=== PATIENT | female | born 1990 | race African-American/Black ===

== ENCOUNTER → 2016-03-18 | Outpatient (CLI) | payer MEDICARE, MEDICAID ==
[~2016-03-18] VITALS: Ht 160 cm; Wt 131.8 kg
[~2016-03-18] MED LIST: AMOXICILLIN 50500 MG PO; BENADRYL50 MG PO; CALCIUM 600MG+D1 TAB PO; CEPHALEXIN500 M1 PO; CIPRO 500MG TA500 MG PO; DOXYCYCLINE HY100 MG PO; FERROUS SULFATE65 MG PO; FLEXERIL 1010 MG/TAB PO; HYGROTON 2525 MG/TAB PO; IMITREX 25MG TA25 MG PO; LEVAQUIN 5500 MG/TA1 PO; LORTAB 5/500 501 TAB; LORTAB 5/500 501 TAB PO; NORCO 325 MG-51 TAB PO; NORVASC 10MG10 MG PO; PERCOCET 325 MG1 TA2 PO; PHENERGAN 25 TA25 MG PO; PHENERGAN25 MG RC; PLAQUENIL 200M200 MG PO; PREDNISONE 5MG5 MG PO; PREDNISONE20 MG; PREDNISONE20 MG PO; PRENATAL1 TA6; PRENATAL1 TA7 PO; RELAFEN 50500 MG/TAB PO; RYZOLT100 MG; TYLENOL 500MG500 MG PO; VITAMIN D 1001000 IU PO; VITAMIN D 400400 IU; VITAMIN D1000 IU PO; ZITHROMAX500 M2 PO
[2016-03-18 09:56] VITALS: BP 108/64; PULSE 80
[2016-03-18 11:51] VITALS: BP 108/64; PULSE 80
== END ==
LOC: LIGHT 10:00
DX: M54.5 Low back pain (principal); I10 Essential (primary) hypertension; E66.01 Morbid (severe) obesity due to excess calories; Z68.43 Body mass index [BMI] 50.0-59.9, adult; G47.33 Obstructive sleep apnea (adult) (pediatric)

== ENCOUNTER → 2016-03-26 | Outpatient (CLI) | payer MEDICARE, MEDICAID | LOC: LIGHT 09:40 | DX: M54.5 Low back pain (principal); I10 Essential (primary) hypertension; E66.01 Morbid (severe) obesity due to excess calories; Z68.43 Body mass index [BMI] 50.0-59.9, adult; G47.33 Obstructive sleep apnea (adult) (pediatric) ==

== ENCOUNTER → 2016-03-30 | Outpatient (CLI) | payer MEDICARE, MEDICAID ==
[~2016-03-30] VITALS: Ht 160 cm; Wt 132.4 kg
== END ==
LOC: LIGHT 14:09
DX: M54.5 Low back pain (principal); I10 Essential (primary) hypertension; E66.01 Morbid (severe) obesity due to excess calories; Z68.43 Body mass index [BMI] 50.0-59.9, adult; G47.33 Obstructive sleep apnea (adult) (pediatric)

== ENCOUNTER → 2016-04-21 | Outpatient (CLI) | payer MEDICARE, MEDICAID ==
[~2016-04-21] VITALS: Ht 160 cm; Wt 132.2 kg
[2016-04-21 14:23] VITALS: BP 137/50; PULSE 92
== END ==
LOC: LIGHT 13:38
DX: M54.5 Low back pain (principal); I10 Essential (primary) hypertension; E66.01 Morbid (severe) obesity due to excess calories; Z68.43 Body mass index [BMI] 50.0-59.9, adult

== ENCOUNTER → 2016-05-19 | Outpatient (CLI) | payer MEDICARE, MEDICAID ==
[~2016-05-19] VITALS: Ht 160 cm; Wt 133.6 kg
[2016-05-19 14:58] VITALS: BP 126/74; PULSE 80
== END ==
LOC: LIGHT 14:55
DX: M54.5 Low back pain (principal); I10 Essential (primary) hypertension; E66.01 Morbid (severe) obesity due to excess calories; Z68.43 Body mass index [BMI] 50.0-59.9, adult; G47.33 Obstructive sleep apnea (adult) (pediatric)

== ENCOUNTER → 2016-06-23 | Outpatient (CLI) | payer MEDICARE, MEDICAID ==
[~2016-06-23] VITALS: Ht 160 cm; Wt 133.4 kg
[2016-06-23 15:31] VITALS: BP 116/71; PULSE 105
== END ==
LOC: LIGHT 10:02
DX: M54.5 Low back pain (principal); I10 Essential (primary) hypertension; E66.01 Morbid (severe) obesity due to excess calories; Z68.43 Body mass index [BMI] 50.0-59.9, adult; G47.33 Obstructive sleep apnea (adult) (pediatric)

== ENCOUNTER 2016-07-26 11:29 | Emergency (ER) | payer MEDICARE, MEDICAID ==
[~2016-07-26] VITALS: Ht 162.6 cm; Wt 127.3 kg
[~2016-07-26 11:29] MED LIST changes: -DOXYCYCLINE HY100 MG PO; -PRENATAL1 TA7 PO
[2016-07-26 11:31] VITALS: BP 145/84; TEMP 98.2
[2016-07-26] MEDS ORDERED: DOXYCYCLINE HY100 MG PO (12:12)
[2016-07-26] MEDS ORDERED: NORCO 325 MG-51 TAB PO (13:00)
[2016-07-26 13:14] VITALS: PULSE 88
== END 2016-07-26 13:14 | disposition home or self-care (01) ==
LOC: COL.ER 11:29
DX: L02.412 Cutaneous abscess of left axilla (principal); M32.9 Systemic lupus erythematosus, unspecified

== ENCOUNTER → 2016-07-27 | Outpatient (CLI) | payer MEDICARE, MEDICAID ==
[~2016-07-27] VITALS: Ht 160 cm; Wt 134.5 kg
[~2016-07-27] MED LIST changes: +DOXYCYCLINE HY100 MG PO; +PRENATAL1 TA7 PO
== END ==
LOC: LIGHT 11:38
DX: M54.5 Low back pain (principal); I10 Essential (primary) hypertension; E66.01 Morbid (severe) obesity due to excess calories; Z68.43 Body mass index [BMI] 50.0-59.9, adult; Z71.3 Dietary counseling and surveillance; G47.33 Obstructive sleep apnea (adult) (pediatric)

== ENCOUNTER 2016-08-22 17:30 | Emergency (ER) | payer MEDICARE, MEDICAID ==
[~2016-08-22] VITALS: Ht 162.6 cm; Wt 131.8 kg
[~2016-08-22 17:30] MED LIST changes: -PRENATAL1 TA7 PO
[2016-08-22 17:32] VITALS: TEMP 98.9
[2016-08-22 18:06] LABS: BASO % 0.2 % (0.0-2.0); EOS % 0.2 % (0-4.0); GRAN # 2.2 (1.4-6.5); GRAN % 48.1 % (42.2-75.2); LYMPH # 1.9 (1.2-3.4); LYMPH % 40.8 % (20.0-51.0); MEAN CELL VOLUME 80 fl (80.0-100.0); MEAN CORPUSCULAR HGB CONC 33 g/dl (33.0-37.0); MEAN PLATELET VOLUME 8.7 fl (7.4-10.4); MONO # 0.5 (0.1-0.6); MONO % 10.3 % (1.7-9.3); PLATELET COUNT 289 K/mm3 (130-400); RED BLOOD COUNT 3.68 M/mm3 (4.10-5.30); REDCELL DISTRIBUTION WIDTH-CV 13.9 % (11.5-14.5); WHITE BLOOD COUNT 4.7 K/mm3 (4.8-10.8)
[2016-08-22 18:09] LABS: PH 6 (5-8); URINE APPEARANCE Clear; URINE BACTERIA None Seen /hpf; URINE BILIRUBIN Negative (NEGATIVE); URINE BLOOD Negative (NEGATIVE); URINE COLOR Yellow; URINE GLUCOSE Negative (NEGATIVE); URINE KETONE Negative (NEGATIVE); URINE UROBILINOGEN Negative (NEGATIVE); URINE WBC 0-2 /hpf
[2016-08-22] MEDS ORDERED: PRENATAL1 TA7 PO (18:12)
[2016-08-22 18:14] LABS: ALBUMIN 4.2 gm/dL (3.5-5.0); BILIRUBIN,TOTAL 0.4 mg/dL (0.0-1.0); CALCIUM 9.2 mg/dL (8.4-10.2); CREATININE, serum 0.66 mg/dL (0.52-1.25); POTASSIUM 3.6 mmol/L (3.4-5.0); TOTAL PROTEIN 8.5 gm/dL (6.4-8.2)
[2016-08-22 18:15] LABS: HEMATOCRIT 29.3 % (37.0-47.0); HEMOGLOBIN 9.8 g/dl (12.5-16.0); MEAN CORPUSCULAR HEMOGLOBIN 27 pg (27.0-31.0)
[2016-08-22 19:23] VITALS: BP 144/98; PULSE 77
== END 2016-08-22 19:23 | disposition home or self-care (01) ==
LOC: COL.ER 17:30
PROVIDERS: Emergency Medicine
DX: O99.89 Other specified diseases and conditions complicating pregnancy, childbirth and the puerperium (principal); R51 Headache; O10.911 Unspecified pre-existing hypertension complicating pregnancy, first trimester; O99.351 Diseases of the nervous system complicating pregnancy, first trimester; G43.909 Migraine, unspecified, not intractable, without status migrainosus; Z3A.08 8 weeks gestation of pregnancy

== ENCOUNTER 2016-09-09 15:54 | Emergency (ER) | payer MEDICARE, MEDICAID ==
[~2016-09-09] VITALS: Ht 162.6 cm; Wt 95.0 kg
[~2016-09-09 15:54] MED LIST changes: +PRENATAL1 TA7 PO
[2016-09-09 15:57] VITALS: TEMP 97.9
[2016-09-09 16:38] LABS: PH 6 (5-8); URINE APPEARANCE Hazy; URINE BACTERIA None Seen /hpf; URINE BILIRUBIN Negative (NEGATIVE); URINE BLOOD Negative (NEGATIVE); URINE COLOR Yellow; URINE GLUCOSE Negative (NEGATIVE); URINE KETONE Negative (NEGATIVE); URINE RBC 0-2 /hpf; URINE UROBILINOGEN Negative (NEGATIVE); URINE WBC 0-2 /hpf
[2016-09-09 18:08] LABS: EOS % 0.1 % (0-4.0); GRAN # 4.5 (1.4-6.5); GRAN % 63.9 % (42.2-75.2); LYMPH # 1.7 (1.2-3.4); LYMPH % 23.5 % (20.0-51.0); MEAN CELL VOLUME 77 fl (80.0-100.0); MEAN CORPUSCULAR HGB CONC 34 g/dl (33.0-37.0); MEAN PLATELET VOLUME 8.7 fl (7.4-10.4); MONO # 0.8 (0.1-0.6); MONO % 11.8 % (1.7-9.3); PLATELET COUNT 335 K/mm3 (130-400); RED BLOOD COUNT 3.57 M/mm3 (4.10-5.30); REDCELL DISTRIBUTION WIDTH-CV 13.7 % (11.5-14.5)
[2016-09-09 18:19] LABS: HEMATOCRIT 27.5 % (37.0-47.0); HEMOGLOBIN 9.4 g/dl (12.5-16.0); MEAN CORPUSCULAR HEMOGLOBIN 26 pg (27.0-31.0)
[2016-09-09 18:20] LABS: ADJUSTED CALCIUM 9.5 mg/dL (8.4-10.2); ALBUMIN 4.2 gm/dL (3.5-5.0); BILIRUBIN,TOTAL 0.5 mg/dL (0.0-1.0); CALCIUM 9.7 mg/dL (8.4-10.2); CREATININE, serum 0.59 mg/dL (0.52-1.25); POTASSIUM 3.4 mmol/L (3.4-5.0); TOTAL PROTEIN 8.7 gm/dL (6.4-8.2)
[2016-09-09 19:09] VITALS: BP 127/84
[2016-09-09 20:20] VITALS: PULSE 99
== END 2016-09-09 20:20 | disposition home or self-care (01) ==
LOC: COL.ER 15:54
PROVIDERS: Nurse Practitioner; Physician Assistant Medical
DX: O26.891 Other specified pregnancy related conditions, first trimester (principal); R07.81 Pleurodynia; Z3A.10 10 weeks gestation of pregnancy
CPT/HCPCS: J1170

== ENCOUNTER → 2016-12-11 | Outpatient (CLI) | payer MEDICAID | LOC: COL.VAS 12:21 | DX: I08.1 Rheumatic disorders of both mitral and tricuspid valves (principal); Z86.711 Personal history of pulmonary embolism ==

== ENCOUNTER 2017-02-19 17:25 | Emergency (ER) | payer MEDICAID ==
[~2017-02-19] VITALS: Ht 162.6 cm; Wt 129.5 kg
[~2017-02-19 17:25] MED LIST changes: +LOVENOX 8080 MG/0.8 SQ; +TRANDATE 100MG100 MG PO
[2017-02-19 17:35] VITALS: TEMP 97.7
[2017-02-19] MEDS ORDERED: ZOLOFT 50MG50 MG PO (17:58)
[2017-02-19] MEDS ORDERED: DIABETA 5MG5 MG/TAB PO (18:01)
[2017-02-19 18:41] LABS: COLLECTION METHOD CATHETER
[2017-02-19 18:44] LABS: BASO % 0.1 % (0.0-2.0); EOS % 0.1 % (0-4.0); GRAN # 4.5 (1.4-6.5); GRAN % 61.2 % (42.2-75.2); LYMPH # 1.7 (1.2-3.4); LYMPH % 23.4 % (20.0-51.0); MEAN CELL VOLUME 76 fl (80.0-100.0); MEAN CORPUSCULAR HGB CONC 32 g/dl (33.0-37.0); MEAN PLATELET VOLUME 8.8 fl (7.4-10.4); MONO # 0.9 (0.1-0.6); MONO % 11.9 % (1.7-9.3); PLATELET COUNT 358 K/mm3 (130-400); RED BLOOD COUNT 3.92 M/mm3 (4.10-5.30)
[2017-02-19 18:51] LABS: HEMATOCRIT 29.6 % (37.0-47.0); HEMOGLOBIN 9.6 g/dl (12.5-16.0); MEAN CORPUSCULAR HEMOGLOBIN 24 pg (27.0-31.0)
[2017-02-19 18:54] LABS: ALBUMIN 3.8 gm/dL (3.5-5.0); BILIRUBIN,TOTAL 0.4 mg/dL (0.0-1.0); CALCIUM 9.2 mg/dL (8.4-10.2); CREATININE, serum 0.67 mg/dL (0.52-1.25); PH 6 (5-8); POTASSIUM 3.8 mmol/L (3.4-5.0); SQUAMOUS EPITHELIAL 0-2 /hpf; URINE APPEARANCE Clear; URINE BACTERIA Rare /hpf; URINE BILIRUBIN Negative (NEGATIVE); URINE BLOOD Negative (NEGATIVE); URINE COLOR Yellow; URINE GLUCOSE Negative (NEGATIVE); URINE KETONE Negative (NEGATIVE); URINE LEUKOCYTE ESTERASE Negative (NEGATIVE); URINE NITRATE Negative (NEGATIVE); URINE PROTEIN(semi-quant) Negative (NEGATIVE); URINE RBC None Seen /hpf; URINE UROBILINOGEN >=4.0 mg/dL (NEGATIVE); URINE WBC 0-2 /hpf
[2017-02-19 18:59] LABS: PARTIAL THROMBOPLASTIN TIME 28.3 SECONDS (26.0-37.0)
[2017-02-19] MEDS ORDERED: FIORICET 325 MG1 TA1 PO (20:42)
[2017-02-19 20:46] VITALS: BP 134/84; PULSE 90
== END 2017-02-19 20:55 | disposition home or self-care (01) ==
LOC: COL.ER 17:25
PROVIDERS: Emergency Medicine
DX: O26.893 Other specified pregnancy related conditions, third trimester (principal); R51 Headache; O24.113 Pre-existing type 2 diabetes mellitus, in pregnancy, third trimester; E11.9 Type 2 diabetes mellitus without complications; O10.913 Unspecified pre-existing hypertension complicating pregnancy, third trimester; Z3A.31 31 weeks gestation of pregnancy; Z86.711 Personal history of pulmonary embolism; Z79.84 Long term (current) use of oral hypoglycemic drugs
CPT/HCPCS: J1200; J2550; J7030

== ENCOUNTER 2017-04-26 13:04 | Emergency (ER) | payer MEDICAID ==
[~2017-04-26] VITALS: Ht 162.6 cm; Wt 131.8 kg
[~2017-04-26 13:04] MED LIST changes: +DIABETA 5MG5 MG/TAB PO; +FIORICET 325 MG1 TA1 PO; +ZOLOFT 50MG50 MG PO
[2017-04-26 13:06] VITALS: TEMP 98.9
[2017-04-26] MEDS ORDERED: NORCO 325 MG-51 TAB PO (13:50)
[2017-04-26] MEDS ORDERED: DOXYCYCLINE 10100 MG PO (13:50)
[2017-04-26 14:04] VITALS: BP 155/95; PULSE 81
== END 2017-04-26 14:07 | disposition home or self-care (01) ==
LOC: COL.ER 13:04
DX: O99.73 Diseases of the skin and subcutaneous tissue complicating the puerperium (principal); L02.411 Cutaneous abscess of right axilla; Z87.39 Personal history of other diseases of the musculoskeletal system and connective tissue; Z88.0 Allergy status to penicillin; Z98.890 Other specified postprocedural states; Z79.01 Long term (current) use of anticoagulants; Z79.84 Long term (current) use of oral hypoglycemic drugs

== ENCOUNTER → 2017-05-03 | Outpatient (CLI) | payer MEDICARE, MEDICAID ==
[~2017-05-03] VITALS: Ht 162.6 cm; Wt 135.4 kg
[~2017-05-03] MED LIST changes: +DOXYCYCLINE 10100 MG PO; +IRON TABLETS325 MG PO; +VITAMIN D31000 I1 PO
[2017-05-03 16:54] VITALS: BP 136/90; PULSE 60
== END ==
LOC: LIGHT
DX: M54.5 Low back pain (principal); I10 Essential (primary) hypertension; E66.01 Morbid (severe) obesity due to excess calories; Z68.43 Body mass index [BMI] 50.0-59.9, adult; Z71.3 Dietary counseling and surveillance; G47.33 Obstructive sleep apnea (adult) (pediatric)
CPT/HCPCS: G0463

== ENCOUNTER 2017-05-12 09:20 | Inpatient (IN) | payer MEDICARE, MEDICAID ==
[~2017-05-12] VITALS: Ht 162.6 cm; Wt 134.1 kg
[2017-05-17] MEDS ORDERED: DIABETA 2.5MG2.5 MG PO (17:07)
[2017-05-17] MEDS ORDERED: NORMODYNE200 MG PO (17:08)
[2017-05-17] MEDS ORDERED: NORCO 325 MG-51 TAB PO (17:11)
[2017-05-17] MEDS ORDERED: CLEOCIN HCL300 MG PO (17:11)
[2017-06-11] MEDS ORDERED: NATURAL IRON65 MG (14:25)
[2017-06-11] MEDS ORDERED: MASON NATURAL2000 IU (14:25)
[2017-06-11] MEDS ORDERED: CLEOCIN HC150 MG/CAP PO (15:34)
[2017-06-30] VITALS (11 sets, daily range): BP systolic 150–159; BP diastolic 90–105; PULSE 77–102; TEMP 97.5–97.8
[2017-07-01 00:05] VITALS: BP 154/83; PULSE 96; TEMP 98
[2017-07-01 04:31] VITALS: BP 147/79; PULSE 79; TEMP 98.6
[2017-07-01 08:55] VITALS: BP 170/109; PULSE 75; TEMP 98.6
[2017-07-01 13:04] VITALS: BP 165/97; PULSE 66; TEMP 98.6
[2017-07-01 15:05] VITALS: BP 155/91; PULSE 73; TEMP 98.3
== END 2017-07-01 19:15 | disposition home or self-care (01) | DRG 621 ==
LOC: INPTSU 06-30 05:30 → SURG 06-30 05:45 → INPTSU 06-30 05:45 → SURG 06-30 07:30
PROVIDERS: Surgery
PROC: 0DB64Z3 Excision of Stomach, Percutaneous Endoscopic Approach, Vertical (ICD-10-PCS; principal; 2017-06-30 07:30)
DX: E66.01 Morbid (severe) obesity due to excess calories (principal); Z68.43 Body mass index [BMI] 50.0-59.9, adult
CPT/HCPCS: J0360; J1100; J1170; J1885; J2405; J2550; J2704; J2710; J2765; J3010; J7030; J7120

== ENCOUNTER 2017-05-17 16:49 | Emergency (ER) | payer MEDICARE, MEDICAID ==
[~2017-05-17] VITALS: Ht 162.6 cm; Wt 131.8 kg
[2017-05-17 16:51] VITALS: PULSE 87; TEMP 98.8
[2017-05-17] MEDS ORDERED: DIABETA 2.5MG2.5 MG PO (17:07)
[2017-05-17] MEDS ORDERED: NORMODYNE200 MG PO (17:08)
[2017-05-17] MEDS ORDERED: CLEOCIN HCL300 MG PO (17:11)
[2017-05-17] MEDS ORDERED: NORCO 325 MG-51 TAB PO (17:11)
[2017-05-17 17:16] VITALS: BP 176/106
== END 2017-05-17 17:18 | disposition home or self-care (01) ==
LOC: COL.ER 16:49
DX: K08.89 Other specified disorders of teeth and supporting structures (principal); I10 Essential (primary) hypertension; Z88.0 Allergy status to penicillin

== ENCOUNTER 2017-06-11 12:50 | Emergency (ER) | payer MEDICARE, MEDICAID ==
[~2017-06-11] VITALS: Ht 162.6 cm; Wt 131.8 kg
[~2017-06-11 12:50] MED LIST changes: +CLEOCIN HCL300 MG PO; +DIABETA 2.5MG2.5 MG PO; +NORMODYNE200 MG PO
[2017-06-11 12:58] VITALS: BP 184/120; PULSE 84; TEMP 98.6
[2017-06-11] MEDS ORDERED: NATURAL IRON65 MG (14:25)
[2017-06-11] MEDS ORDERED: MASON NATURAL2000 IU (14:25)
[2017-06-11] MEDS ORDERED: CLEOCIN HC150 MG/CAP PO (15:34)
== END 2017-06-11 15:49 | disposition home or self-care (01) ==
LOC: COL.ER 12:50
DX: L02.411 Cutaneous abscess of right axilla (principal); I10 Essential (primary) hypertension; Z88.0 Allergy status to penicillin

== ENCOUNTER → 2017-06-14 | Outpatient (CLI) | payer MEDICARE, MEDICAID ==
[~2017-06-14] MED LIST changes: +CLEOCIN HC150 MG/CAP PO; +MASON NATURAL2000 IU; +NATURAL IRON65 MG
== END ==
LOC: LIGHT 11:02
DX: E66.01 Morbid (severe) obesity due to excess calories (principal)

== ENCOUNTER 2017-07-12 19:22 | Emergency (ER) | payer MEDICARE, MEDICAID ==
[~2017-07-12] VITALS: Ht 162.6 cm; Wt 129.0 kg
[2017-07-12] MEDS ORDERED: NORCO 325 MG-51 TAB PO (19:46)
[2017-07-12] MEDS ORDERED: DOXYCYCLINE 10100 MG PO (19:46)
[2017-07-12 20:08] VITALS: BP 166/100; PULSE 73; TEMP 97.9
== END 2017-07-12 20:05 | disposition home or self-care (01) ==
LOC: COL.ER 19:22
DX: T81.30XA Disruption of wound, unspecified, initial encounter (principal); T81.4XXA Infection following a procedure, initial encounter; Z88.0 Allergy status to penicillin

== ENCOUNTER 2017-08-03 13:25 | Emergency (ER) | payer MEDICARE, MEDICAID ==
[~2017-08-03] VITALS: Ht 162.6 cm; Wt 115.5 kg
[2017-08-03 13:30] VITALS: TEMP 98.1
[2017-08-03] MEDS ORDERED: PLAQUENIL 200M200 MG PO (14:58)
[2017-08-03] MEDS ORDERED: DOXYCYCLINE 10100 MG PO (15:16)
[2017-08-03] MEDS ORDERED: CEPHALEXIN500 M1 PO (15:16)
[2017-08-03 15:46] VITALS: BP 136/90; PULSE 78
== END 2017-08-03 15:47 | disposition home or self-care (01) ==
LOC: COL.ER 13:25
DX: L03.113 Cellulitis of right upper limb (principal); Z98.51 Tubal ligation status

== ENCOUNTER → 2017-08-09 | Outpatient (CLI) | payer MEDICARE, MEDICAID ==
[~2017-08-09] VITALS: Ht 162.6 cm; Wt 119.1 kg
[~2017-08-09] MED LIST changes: -NATURAL IRON65 MG; +NATURAL IRON65 MG PO
[2017-08-09 13:38] VITALS: BP 110/52; PULSE 68
== END ==
LOC: LIGHT 13:07
DX: M54.5 Low back pain (principal); I10 Essential (primary) hypertension; E66.01 Morbid (severe) obesity due to excess calories; Z68.42 Body mass index [BMI] 45.0-49.9, adult; Z71.3 Dietary counseling and surveillance; G47.33 Obstructive sleep apnea (adult) (pediatric)

== ENCOUNTER 2017-08-24 15:39 | Emergency (ER) | payer MEDICARE, MEDICAID ==
[~2017-08-24] VITALS: Ht 162.6 cm; Wt 115.5 kg
[2017-08-24 15:49] VITALS: TEMP 98
[2017-08-24 18:10] VITALS: BP 199/101; PULSE 68
== END 2017-08-24 18:11 | disposition home or self-care (01) ==
LOC: COL.ER 15:39
DX: M79.661 Pain in right lower leg (principal); Y92.009 Unspecified place in unspecified non-institutional (private) residence as the place of occurrence of the external cause

== ENCOUNTER → 2017-09-06 | Outpatient (CLI) | payer MEDICARE, MEDICAID ==
[~2017-09-06] VITALS: Ht 162.6 cm; Wt 114.5 kg
[2017-09-06 16:46] VITALS: BP 126/80; PULSE 80
== END ==
LOC: LIGHT 09:42
DX: I10 Essential (primary) hypertension (principal); G47.33 Obstructive sleep apnea (adult) (pediatric); E66.01 Morbid (severe) obesity due to excess calories; Z68.41 Body mass index [BMI] 40.0-44.9, adult; Z71.3 Dietary counseling and surveillance; Z98.84 Bariatric surgery status

== ENCOUNTER → 2017-12-27 | Outpatient (CLI) | payer MEDICARE, MEDICAID ==
[~2017-12-27] VITALS: Ht 162.6 cm; Wt 101.2 kg
[~2017-12-27] MED LIST changes: +B-121000 MCG PO; +MULTIVITAMIN FO1 CAP PO; +VITAMIN D32000 IU PO
[2017-12-27 13:10] VITALS: BP 140/100; PULSE 72
== END ==
LOC: LIGHT 12:53
DX: I10 Essential (primary) hypertension (principal); G47.33 Obstructive sleep apnea (adult) (pediatric); Z98.84 Bariatric surgery status; E66.9 Obesity, unspecified; Z68.38 Body mass index [BMI] 38.0-38.9, adult; Z71.3 Dietary counseling and surveillance
CPT/HCPCS: G0463

== ENCOUNTER 2018-01-27 14:39 | Emergency (ER) | payer MEDICARE, MEDICAID ==
[~2018-01-27] VITALS: Ht 162.6 cm; Wt 100.0 kg
[2018-01-27 14:55] VITALS: BP 193/103; PULSE 69; TEMP 99
[2018-01-27] MEDS ORDERED: CLEOCIN HCL300 MG PO (16:34)
[2018-01-27] MEDS ORDERED: NORCO 325 MG-51 TAB PO (16:35)
== END 2018-01-27 17:00 | disposition home or self-care (01) ==
LOC: COL.ER 14:39
DX: K08.89 Other specified disorders of teeth and supporting structures (principal); L03.211 Cellulitis of face

== ENCOUNTER 2018-02-14 12:39 | Emergency (ER) | payer MEDICARE, MEDICAID ==
[~2018-02-14] VITALS: Ht 162.6 cm; Wt 92.7 kg
[2018-02-14 13:02] VITALS: BP 161/96; PULSE 73; TEMP 98.2
[2018-02-14] MEDS ORDERED: NORCO 325 MG-51 TAB PO (15:08)
[2018-02-14] MEDS ORDERED: CEPHALEXIN500 M1 PO (15:08)
== END 2018-02-14 15:52 | disposition home or self-care (01) ==
LOC: COL.ER 12:39
DX: T23.261A Burn of second degree of back of right hand, initial encounter (principal); M32.9 Systemic lupus erythematosus, unspecified; X15.0XXA Contact with hot stove (kitchen), initial encounter; Y92.009 Unspecified place in unspecified non-institutional (private) residence as the place of occurrence of the external cause

== ENCOUNTER 2018-03-20 14:33 | Emergency (ER) | payer MEDICAID ==
[~2018-03-20] VITALS: Ht 162.6 cm; Wt 92.7 kg
[2018-03-20 14:48] VITALS: BP 189/116; PULSE 82; TEMP 98.7
[2018-03-20] MEDS ORDERED: NORCO 325 MG-51 TAB PO (15:15)
[2018-03-20] MEDS ORDERED: DOXYCYCLINE HY100 MG PO (15:15)
== END 2018-03-20 15:30 | disposition home or self-care (01) ==
LOC: COL.ER 14:33
DX: L73.2 Hidradenitis suppurativa (principal); Z88.0 Allergy status to penicillin; Z86.711 Personal history of pulmonary embolism

== ENCOUNTER 2018-05-23 12:21 | Emergency (ER) | payer MEDICARE ==
[~2018-05-23] VITALS: Ht 162.6 cm; Wt 88.6 kg
[2018-05-23 12:29] VITALS: BP 175/101; TEMP 100.2
[2018-05-23] MEDS ORDERED: VOLTAREN GEL 1%1 TU TP (13:54)
[2018-05-23] MEDS ORDERED: ULTRAM 50MG TAB50 MG PO (14:21)
[2018-05-23 14:25] VITALS: PULSE 94
== END 2018-05-23 14:27 | disposition home or self-care (01) ==
LOC: COL.ER 12:21
DX: M25.561 Pain in right knee (principal); J44.9 Chronic obstructive pulmonary disease, unspecified

== ENCOUNTER → 2018-09-05 | Outpatient (CLI) | payer MEDICARE ==
[~2018-09-05] VITALS: Ht 162.6 cm; Wt 95.0 kg
[~2018-09-05] MED LIST changes: +ULTRAM 50MG TAB50 MG PO; +VOLTAREN GEL 1%1 TU TP
[2018-09-05 15:29] VITALS: BP 170/110; PULSE 72
== END ==
LOC: LIGHT 08-08 13:41
DX: Z98.84 Bariatric surgery status (principal); I10 Essential (primary) hypertension; G47.33 Obstructive sleep apnea (adult) (pediatric); E66.01 Morbid (severe) obesity due to excess calories; Z68.36 Body mass index [BMI] 36.0-36.9, adult; Z71.3 Dietary counseling and surveillance
CPT/HCPCS: G0463

== ENCOUNTER 2018-09-11 10:07 | Emergency (ER) | payer MEDICARE, MEDICAID ==
[~2018-09-11] VITALS: Ht 162.6 cm; Wt 88.6 kg
[2018-09-11 10:08] VITALS: TEMP 98.5
[2018-09-11 10:41] LABS: COLLECTION METHOD CLEAN CATCH
[2018-09-11 10:52] LABS: BASO % 0.3 % (0.0-2.0); EOS % 0.3 % (0-4.0); GRAN # 1.5 (1.4-6.5); HEMOGLOBIN 11.2 g/dl (12.5-16.0); LYMPH # 1.2 (1.2-3.4); LYMPH % 35.9 % (20.0-51.0); MEAN CELL VOLUME 85 fl (80.0-100.0); MEAN CORPUSCULAR HEMOGLOBIN 28 pg (27.0-31.0); MEAN CORPUSCULAR HGB CONC 33 g/dl (33.0-37.0); MEAN PLATELET VOLUME 8.5 fl (7.4-10.4); MONO # 0.6 (0.1-0.6); MONO % 18.2 % (1.7-9.3); PLATELET COUNT 360 K/mm3 (130-400); RED BLOOD COUNT 3.98 M/mm3 (4.10-5.30); REDCELL DISTRIBUTION WIDTH-CV 13.7 % (11.5-14.5)
[2018-09-11 10:53] LABS: HEMATOCRIT 33.7 % (37.0-47.0)
[2018-09-11 11:04] LABS: PH 7 (5-8); SQUAMOUS EPITHELIAL 0-2 /hpf; URINE APPEARANCE Clear; URINE BACTERIA None Seen /hpf; URINE BILIRUBIN Negative (NEGATIVE); URINE BLOOD Negative (NEGATIVE); URINE COLOR Yellow; URINE GLUCOSE Negative (NEGATIVE); URINE KETONE Negative (NEGATIVE); URINE LEUKOCYTE ESTERASE Negative (NEGATIVE); URINE NITRATE Negative (NEGATIVE); URINE PROTEIN(semi-quant) Negative (NEGATIVE); URINE RBC 0-2 /hpf; URINE UROBILINOGEN Negative (NEGATIVE)
[2018-09-11 11:09] LABS: ALANINE AMINOTRANSFERASE < 6 U/L (9-52); ALBUMIN 4.4 gm/dL (3.5-5.0); ALKALINE PHOSPHATASE 107 U/L (50-136); ANION GAP 10 mmol/L (7-16); AST,SGOT 28 U/L (15-37); BILIRUBIN,TOTAL 0.5 mg/dL (0.0-1.0); BLOOD UREA NITROGEN 6 mg/dL (7-17); C-REACTIVE PROTEIN 1.9 mg/dL (0.0-0.9); CALCIUM 9.3 mg/dL (8.4-10.2); CARBON DIOXIDE 27 mmol/L (22-30); CHLORIDE 105 mmol/L (98-107); CREATININE, serum 0.58 (0.52-1.25); GLUCOSE 85 mg/dL (74-106); SODIUM 143 mmol/L (137-145); TOTAL PROTEIN 8.9 gm/dL (6.4-8.2)
[2018-09-11 11:11] LABS: POTASSIUM 2.9 mmol/L (3.4-5.0)
[2018-09-11 11:20] LABS: ERYTHROCYTE SEDIMENTATION RATE 24 mm/hr (0-20)
[2018-09-11] MEDS ORDERED: PLAQUENIL 200M200 MG PO (11:59)
[2018-09-11] MEDS ORDERED: CLEOCIN HC150 MG/CAP PO (13:46)
[2018-09-11] MEDS ORDERED: PERCOCET 325 MG1 TA2 PO (13:46)
[2018-09-11] MEDS ORDERED: TRANDATE 100MG100 MG PO (15:06)
[2018-09-11 15:16] VITALS: BP 132/88; PULSE 76
== END 2018-09-11 15:16 | disposition home or self-care (01) ==
LOC: COL.ER 10:07
PROVIDERS: Emergency Medicine
DX: L03.114 Cellulitis of left upper limb (principal); I10 Essential (primary) hypertension; Z98.84 Bariatric surgery status; Z98.51 Tubal ligation status; Z98.890 Other specified postprocedural states
CPT/HCPCS: J1170; J3480; J7030; Q9967

== ENCOUNTER 2019-02-15 12:03 | Emergency (ER) | payer MEDICARE, MEDICAID | END 2019-02-15 12:44 | disposition left against medical advice (07) | LOC: COL.ER 12:03 | DX: Z72.9 Problem related to lifestyle, unspecified (principal) ==

== ENCOUNTER 2019-02-23 19:31 | Emergency (ER) | payer MEDICARE, MEDICAID ==
[~2019-02-23] VITALS: Ht 162.6 cm; Wt 90.9 kg
[2019-02-23 19:37] VITALS: BP 180/111; TEMP 97.8
[2019-02-23 21:05] VITALS: PULSE 82
== END 2019-02-23 21:00 | disposition home or self-care (01) ==
LOC: COL.ER 19:31
DX: S80.01XA Contusion of right knee, initial encounter (principal); W10.9XXA Fall (on) (from) unspecified stairs and steps, initial encounter

== ENCOUNTER 2019-03-06 09:57 | Emergency (ER) | payer MEDICARE, MEDICAID ==
[~2019-03-06] VITALS: Ht 162.6 cm; Wt 90.9 kg
[2019-03-06 10:07] VITALS: TEMP 98.7
[2019-03-06] MEDS ORDERED: CEPHALEXIN500 M1 PO (11:52)
[2019-03-06 12:06] VITALS: BP 161/92; PULSE 85
== END 2019-03-06 12:08 | disposition home or self-care (01) ==
LOC: COL.ER 09:57
DX: J02.9 Acute pharyngitis, unspecified (principal); Z88.0 Allergy status to penicillin; Z88.6 Allergy status to analgesic agent; Z98.84 Bariatric surgery status

== ENCOUNTER 2019-04-07 10:24 | Emergency (ER) | payer MEDICARE, MEDICAID ==
[~2019-04-07] VITALS: Ht 162.6 cm; Wt 90.9 kg
[2019-04-07] MEDS ORDERED: ERGOCALCIFER50000 IU PO (10:49)
[2019-04-07] MEDS ORDERED: VENTOLIN0.09 MG IH (10:50)
[2019-04-07] MEDS ORDERED: ORAL PAIN REL9.35 GM MM (10:50)
[2019-04-07] MEDS ORDERED: K-TAB20 PO (10:51)
[2019-04-07] MEDS ORDERED: TYLENOL 325MG325 MG PO (10:52)
[2019-04-07 11:12] LABS: BASO % 0.2 % (0.0-2.0); EOS % 0.2 % (0-4.0); GRAN # 3.8 (1.4-6.5); GRAN % 60.6 % (42.2-75.2); HEMATOCRIT 32.1 % (37.0-47.0); HEMOGLOBIN 10.8 g/dl (12.5-16.0); LYMPH # 1.7 (1.2-3.4); LYMPH % 26.3 % (20.0-51.0); MEAN CELL VOLUME 86 fl (80.0-100.0); MEAN CORPUSCULAR HEMOGLOBIN 29 pg (27.0-31.0); MEAN CORPUSCULAR HGB CONC 34 g/dl (33.0-37.0); MEAN PLATELET VOLUME 8.5 fl (7.4-10.4); MONO # 0.8 (0.1-0.6); MONO % 12.4 % (1.7-9.3); PLATELET COUNT 366 K/mm3 (130-400); RED BLOOD COUNT 3.72 M/mm3 (4.10-5.30); REDCELL DISTRIBUTION WIDTH-CV 13.8 % (11.5-14.5)
[2019-04-07 11:23] LABS: ALBUMIN 4.5 gm/dL (3.5-5.0); BILIRUBIN,TOTAL 0.4 mg/dL (0.0-1.0); CALCIUM 9.1 mg/dL (8.4-10.2); CREATININE, serum 0.75 (0.52-1.25); POTASSIUM 3.1 mmol/L (3.4-5.0)
[2019-04-07] MEDS ORDERED: ULTRAM 50MG TAB50 MG PO (12:23)
[2019-04-07 12:30] VITALS: BP 174/120; PULSE 75; TEMP 98.6
== END 2019-04-07 12:40 | disposition home or self-care (01) ==
LOC: COL.ER 10:24
PROVIDERS: Physician Assistant
DX: D64.9 Anemia, unspecified (principal); K06.8 Other specified disorders of gingiva and edentulous alveolar ridge; E87.6 Hypokalemia; I10 Essential (primary) hypertension

== ENCOUNTER 2019-07-28 19:33 | Emergency (ER) | payer MEDICARE, MEDICAID ==
[~2019-07-28] VITALS: Ht 162.6 cm; Wt 90.9 kg
[~2019-07-28 19:33] MED LIST changes: +ERGOCALCIFER50000 IU PO; +K-TAB20 PO; +ORAL PAIN REL9.35 GM MM; +TYLENOL 325MG325 MG PO; +VENTOLIN0.09 MG IH
[2019-07-28] MEDS ORDERED: CLEOCIN HC150 MG/CAP PO (20:04)
[2019-07-28 20:20] VITALS: BP 137/74; PULSE 67; TEMP 98.1
== END 2019-07-28 20:28 | disposition home or self-care (01) ==
LOC: COL.ER 19:33
DX: R51 Headache (principal); R22.0 Localized swelling, mass and lump, head; I10 Essential (primary) hypertension; M32.9 Systemic lupus erythematosus, unspecified

== ENCOUNTER 2019-09-21 09:50 | Emergency (ER) | payer MEDICARE, MEDICAID ==
[~2019-09-21] VITALS: Ht 162.6 cm; Wt 90.9 kg
[2019-09-21 09:57] VITALS: BP 173/126; TEMP 98.1
[2019-09-21] MEDS ORDERED: ULTRAM 50MG TAB50 MG PO (10:30)
[2019-09-21] MEDS ORDERED: CLEOCIN HCL300 MG PO (10:30)
[2019-09-21 10:36] VITALS: PULSE 71
== END 2019-09-21 10:40 | disposition home or self-care (01) ==
LOC: COL.ER 09:50
DX: K06.9 Disorder of gingiva and edentulous alveolar ridge, unspecified (principal); I10 Essential (primary) hypertension

== ENCOUNTER 2019-12-11 17:07 | Emergency (ER) | payer MEDICARE, MEDICAID ==
[~2019-12-11] VITALS: Ht 162.6 cm; Wt 100.0 kg
[~2019-12-11 17:07] MED LIST changes: +OMNICEF 300MG300 MG PO
[2019-12-11 17:13] VITALS: BP 187/133; PULSE 83; TEMP 98.2
[2019-12-11] MEDS ORDERED: CLEOCIN HCL300 MG PO (20:25)
== END 2019-12-11 19:32 | disposition left against medical advice (07) ==
LOC: COL.ER 17:07
DX: K08.89 Other specified disorders of teeth and supporting structures (principal); M32.9 Systemic lupus erythematosus, unspecified; Z88.0 Allergy status to penicillin; Z88.6 Allergy status to analgesic agent

== ENCOUNTER 2020-02-08 15:00 | Emergency (ER) | payer MEDICARE, MEDICAID ==
[~2020-02-08] VITALS: Ht 162.6 cm; Wt 90.9 kg
[2020-02-08 15:25] VITALS: TEMP 97.2
[2020-02-08] MEDS ORDERED: CLEOCIN HCL300 MG PO (16:28)
[2020-02-08] MEDS ORDERED: NORCO 325 MG-51 TAB PO (16:33)
[2020-02-08 16:59] VITALS: BP 165/105; PULSE 67
== END 2020-02-08 16:59 | disposition home or self-care (01) ==
LOC: COL.ER 15:00
DX: R50.9 Fever, unspecified (principal); L08.9 Local infection of the skin and subcutaneous tissue, unspecified

== ENCOUNTER 2020-02-12 11:28 | Emergency (ER) | payer MEDICARE, MEDICAID ==
[~2020-02-12] VITALS: Ht 162.6 cm; Wt 90.9 kg
[2020-02-12 11:45] VITALS: BP 174/133; TEMP 98.2
[2020-02-12] MEDS ORDERED: PLAQUENIL 200M200 MG PO (12:45)
[2020-02-12 13:18] VITALS: PULSE 61
== END 2020-02-12 13:19 | disposition home or self-care (01) ==
LOC: COL.ER 11:28
DX: L03.211 Cellulitis of face (principal); Z88.0 Allergy status to penicillin; Z88.6 Allergy status to analgesic agent

== ENCOUNTER 2020-02-20 12:33 | Emergency (ER) | payer MEDICARE, MEDICAID ==
[~2020-02-20] VITALS: Ht 162.6 cm; Wt 90.9 kg
[2020-02-20 13:50] LABS: BASO % 0.3 % (0.0-2.0); GRAN # 1.3 (1.4-6.5); LYMPH # 1.4 (1.2-3.4); LYMPH % 42.8 % (20.0-51.0); MEAN CELL VOLUME 85 fl (80.0-100.0); MEAN CORPUSCULAR HEMOGLOBIN 29 pg (27.0-31.0); MEAN CORPUSCULAR HGB CONC 34 g/dl (33.0-37.0); MEAN PLATELET VOLUME 9.2 fl (7.4-10.4); MONO # 0.5 (0.1-0.6); MONO % 16.6 % (1.7-9.3); PLATELET COUNT 332 K/mm3 (130-400); REDCELL DISTRIBUTION WIDTH-CV 13.3 % (11.5-14.5)
[2020-02-20 13:51] LABS: HEMATOCRIT 32.1 % (37.0-47.0)
[2020-02-20 13:53] LABS: ALANINE AMINOTRANSFERASE 9 U/L (4-34); ALBUMIN 4.5 gm/dL (3.5-5.0); ALKALINE PHOSPHATASE 91 U/L (50-136); ANION GAP 11 mmol/L (7-16); AST,SGOT 28 U/L (15-37); BILIRUBIN,TOTAL 0.4 mg/dL (0.0-1.0); BLOOD UREA NITROGEN 7 mg/dL (7-17); CALCIUM 9.1 mg/dL (8.4-10.2); CARBON DIOXIDE 24 mmol/L (22-30); CHLORIDE 106 mmol/L (98-107); CREATININE, serum 0.76 (0.52-1.25); GLUCOSE 98 mg/dL (74-106); LIPASE 25 U/L (23-300); POTASSIUM 3.2 mmol/L (3.4-5.0); SODIUM 140 mmol/L (137-145); TOTAL PROTEIN 8.8 gm/dL (6.4-8.2)
[2020-02-20 14:05] LABS: TROPONIN-I < 0.012 ng/mL (0.000-0.035)
[2020-02-20 14:06] VITALS: BP 152/120; PULSE 67; TEMP 98.3
[2020-02-20 14:20] LABS: INR 1.1 (0.8-3.0)
== END 2020-02-20 14:06 | disposition left against medical advice (07) ==
LOC: COL.ER 12:33
PROVIDERS: Emergency Medicine
DX: R07.9 Chest pain, unspecified (principal); K08.89 Other specified disorders of teeth and supporting structures; Z98.84 Bariatric surgery status; Z88.0 Allergy status to penicillin; Z88.6 Allergy status to analgesic agent

== ENCOUNTER 2020-03-05 16:48 | Emergency (ER) | payer MEDICARE, MEDICAID ==
[~2020-03-05] VITALS: Ht 162.6 cm; Wt 90.9 kg
[2020-03-05 16:59] VITALS: TEMP 96.6
[2020-03-05] MEDS ORDERED: ULTRAM 50MG TAB50 MG PO (18:36)
[2020-03-05 18:47] VITALS: BP 147/93; PULSE 91
== END 2020-03-05 18:47 | disposition home or self-care (01) ==
LOC: COL.ER 16:48
DX: S16.1XXA Strain of muscle, fascia and tendon at neck level, initial encounter (principal); M25.562 Pain in left knee; M25.561 Pain in right knee; M54.5 Low back pain; Z98.84 Bariatric surgery status; Z88.0 Allergy status to penicillin; Z88.6 Allergy status to analgesic agent; Z91.040 Latex allergy status; V48.5XXA Car driver injured in noncollision transport accident in traffic accident, initial encounter

== ENCOUNTER 2020-03-25 16:12 | Emergency (ER) | payer MEDICARE, MEDICAID ==
[~2020-03-25] VITALS: Ht 162.6 cm; Wt 90.9 kg
[2020-03-25 16:23] VITALS: TEMP 98.5
[2020-03-25 18:54] VITALS: BP 154/114; PULSE 78
== END 2020-03-25 18:57 | disposition home or self-care (01) ==
LOC: COL.ER 16:12
DX: S16.1XXA Strain of muscle, fascia and tendon at neck level, initial encounter (principal); M25.561 Pain in right knee; M25.562 Pain in left knee; G89.29 Other chronic pain; M54.9 Dorsalgia, unspecified; M32.9 Systemic lupus erythematosus, unspecified; Z88.0 Allergy status to penicillin; Z88.6 Allergy status to analgesic agent; V89.2XXA Person injured in unspecified motor-vehicle accident, traffic, initial encounter
CPT/HCPCS: J1200; J1885; J2550; J2765; J7030

== ENCOUNTER 2020-05-26 19:35 | Emergency (ER) | payer MEDICARE, MEDICAID ==
[~2020-05-26] VITALS: Ht 162.6 cm; Wt 95.5 kg
[2020-05-26 19:49] VITALS: TEMP 97
[2020-05-26] MEDS ORDERED: NATURAL IRON65 MG (20:21)
[2020-05-26] MEDS ORDERED: VITAMIN D31000 I1 PO (20:21)
[2020-05-26] MEDS ORDERED: K-DUR 10 MEQ T10 MEQ PO (20:22)
[2020-05-26] MEDS ORDERED: DOXYCYCLINE HY100 MG PO (21:00)
[2020-05-26] MEDS ORDERED: NORCO 325 MG-51 TAB PO (21:00)
[2020-05-26 21:21] VITALS: BP 158/80; PULSE 78
[2020-12-07] MEDS ORDERED: ZOFRAN ODT4 MG PO (23:57)
[2020-12-07] MEDS ORDERED: TORADOL 10MG TA10 MG PO (23:57)
[2020-12-07] MEDS ORDERED: CIPRO 500MG TA500 MG PO (23:57)
[2020-12-09] MEDS ORDERED: PERCOCET 325 MG1 TA2 PO (15:32)
== END 2020-05-26 21:21 | disposition home or self-care (01) ==
LOC: COL.ER 19:35
DX: L03.211 Cellulitis of face (principal); Z88.0 Allergy status to penicillin; Z88.6 Allergy status to analgesic agent; Z91.040 Latex allergy status

== ENCOUNTER 2020-06-21 13:01 | Emergency (ER) | payer MEDICARE, MEDICAID ==
[~2020-06-21] VITALS: Ht 162.6 cm; Wt 90.9 kg
[~2020-06-21 13:01] MED LIST changes: +K-DUR 10 MEQ T10 MEQ PO; +NATURAL IRON65 MG
[2020-06-21 13:08] VITALS: TEMP 97.6
[2020-06-21] MEDS ORDERED: NORCO 325 MG-51 TAB PO (15:17)
[2020-06-21] MEDS ORDERED: CLEOCIN HCL300 MG PO (15:24)
[2020-06-21 15:32] VITALS: BP 158/109; PULSE 58
[2020-12-07] MEDS ORDERED: CIPRO 500MG TA500 MG PO (23:57)
[2020-12-07] MEDS ORDERED: ZOFRAN ODT4 MG PO (23:57)
[2020-12-07] MEDS ORDERED: TORADOL 10MG TA10 MG PO (23:57)
[2020-12-09] MEDS ORDERED: PERCOCET 325 MG1 TA2 PO (15:32)
== END 2020-06-21 15:40 | disposition home or self-care (01) ==
LOC: COL.ER 13:01
DX: K04.7 Periapical abscess without sinus (principal); Z88.0 Allergy status to penicillin; Z88.6 Allergy status to analgesic agent; Z91.040 Latex allergy status
CPT/HCPCS: J1885; J2270; J7030

== ENCOUNTER 2020-07-13 19:52 | Emergency (ER) | payer MEDICARE, MEDICAID ==
[~2020-07-13] VITALS: Ht 162.6 cm; Wt 95.5 kg
[2020-07-13 21:05] LABS: BASO % 0.3 % (0.0-2.0); EOS % 0.3 % (0-4.0); GRAN # 1.4 (1.4-6.5); HEMOGLOBIN 10.8 g/dl (12.5-16.0); LYMPH # 1.5 (1.2-3.4); LYMPH % 44.8 % (20.0-51.0); MEAN CELL VOLUME 88 fl (80.0-100.0); MEAN CORPUSCULAR HEMOGLOBIN 30 pg (27.0-31.0); MEAN CORPUSCULAR HGB CONC 34 g/dl (33.0-37.0); MEAN PLATELET VOLUME 8.5 fl (7.4-10.4); MONO # 0.4 (0.1-0.6); MONO % 11.3 % (1.7-9.3); PLATELET COUNT 395 K/mm3 (130-400); RED BLOOD COUNT 3.61 M/mm3 (4.10-5.30); REDCELL DISTRIBUTION WIDTH-CV 13.1 % (11.5-14.5)
[2020-07-13 21:06] LABS: HEMATOCRIT 31.7 % (37.0-47.0)
[2020-07-13 21:17] LABS: ALANINE AMINOTRANSFERASE 7 U/L (4-34); ALBUMIN 4.5 gm/dL (3.5-5.0); ALKALINE PHOSPHATASE 108 U/L (50-136); ANION GAP 7 mmol/L (7-16); AST,SGOT 22 U/L (15-37); BILIRUBIN,TOTAL 0.2 mg/dL (0.0-1.0); BLOOD UREA NITROGEN 9 mg/dL (7-17); CALCIUM 9.1 mg/dL (8.4-10.2); CARBON DIOXIDE 26 mmol/L (22-30); CHLORIDE 108 mmol/L (98-107); CREATININE, serum 0.66 (0.52-1.25); GLUCOSE 91 mg/dL (74-106); POTASSIUM 3.2 mmol/L (3.4-5.0); SODIUM 140 mmol/L (137-145); TOTAL PROTEIN 9.1 gm/dL (6.4-8.2)
[2020-07-13 21:19] LABS: C-REACTIVE PROTEIN < 0.5 mg/dL (0.0-0.9)
[2020-07-14] MEDS ORDERED: CLEOCIN HCL300 MG PO (01:06)
[2020-07-14 01:20] VITALS: BP 155/90; PULSE 56; TEMP 98.3
[2020-12-07] MEDS ORDERED: ZOFRAN ODT4 MG PO (23:57)
[2020-12-07] MEDS ORDERED: TORADOL 10MG TA10 MG PO (23:57)
[2020-12-07] MEDS ORDERED: CIPRO 500MG TA500 MG PO (23:57)
[2020-12-09] MEDS ORDERED: PERCOCET 325 MG1 TA2 PO (15:32)
== END 2020-07-14 01:20 | disposition home or self-care (01) ==
LOC: COL.ER 19:52
PROVIDERS: Nurse Practitioner
DX: K11.21 Acute sialoadenitis (principal); K04.7 Periapical abscess without sinus; Z88.0 Allergy status to penicillin; Z79.2 Long term (current) use of antibiotics
CPT/HCPCS: J2270; Q9967

== ENCOUNTER 2020-08-09 10:01 | Emergency (ER) | payer MEDICARE, MEDICAID ==
[~2020-08-09] VITALS: Ht 162.6 cm; Wt 90.9 kg
[2020-08-09 11:31] LABS: HEMOGLOBIN 11.1 g/dl (12.5-16.0); MEAN CELL VOLUME 88 fl (80.0-100.0); MEAN CORPUSCULAR HEMOGLOBIN 29 pg (27.0-31.0); MEAN CORPUSCULAR HGB CONC 33 g/dl (33.0-37.0); MEAN PLATELET VOLUME 8.4 fl (7.4-10.4); PLATELET COUNT 422 K/mm3 (130-400); RED BLOOD COUNT 3.82 M/mm3 (4.10-5.30); REDCELL DISTRIBUTION WIDTH-CV 13.1 % (11.5-14.5)
[2020-08-09 11:42] LABS: ALBUMIN 4.4 gm/dL (3.5-5.0); BILIRUBIN,TOTAL 0.3 mg/dL (0.0-1.0); CALCIUM 9.1 mg/dL (8.4-10.2); CREATININE, serum 0.61 (0.52-1.25); TOTAL PROTEIN 8.9 gm/dL (6.4-8.2)
[2020-08-09 11:46] LABS: HEMATOCRIT 33.6 % (37.0-47.0)
[2020-08-09 12:28] LABS: BAND 3 % (0-10); LYMPHOCYTE 38 % (20.0-51.0); NEUTROPHILS 48 % (42.0-75.2)
[2020-08-09 12:31] LABS: PLATELET ESTIMATE INCREASED (NORMAL)
[2020-08-09 13:45] VITALS: TEMP 98.1
[2020-08-09 13:49] VITALS: BP 152/101; PULSE 80
[2020-12-07] MEDS ORDERED: TORADOL 10MG TA10 MG PO (23:57)
[2020-12-07] MEDS ORDERED: ZOFRAN ODT4 MG PO (23:57)
[2020-12-07] MEDS ORDERED: CIPRO 500MG TA500 MG PO (23:57)
[2020-12-09] MEDS ORDERED: PERCOCET 325 MG1 TA2 PO (15:32)
== END 2020-08-09 13:55 | disposition home or self-care (01) ==
LOC: COL.ER 10:01
PROVIDERS: Nurse Practitioner
DX: R22.0 Localized swelling, mass and lump, head (principal); Z88.0 Allergy status to penicillin; Z86.69 Personal history of other diseases of the nervous system and sense organs
CPT/HCPCS: Q9967

== ENCOUNTER 2020-09-02 09:12 | Emergency (ER) | payer MEDICARE, MEDICAID ==
[~2020-09-02] VITALS: Ht 162.6 cm; Wt 90.9 kg
[2020-09-02 09:36] VITALS: TEMP 100
[2020-09-02 10:35] LABS: BASO % 0.4 % (0.0-2.0); EOS % 0.4 % (0-4.0); GRAN # 1.5 (1.4-6.5); GRAN % 53.5 % (42.2-75.2); HEMOGLOBIN 10.4 g/dl (12.5-16.0); LYMPH # 0.9 (1.2-3.4); LYMPH % 31.2 % (20.0-51.0); MEAN CELL VOLUME 89 fl (80.0-100.0); MEAN CORPUSCULAR HEMOGLOBIN 30 pg (27.0-31.0); MEAN CORPUSCULAR HGB CONC 33 g/dl (33.0-37.0); MEAN PLATELET VOLUME 8.6 fl (7.4-10.4); MONO # 0.4 (0.1-0.6); MONO % 14.1 % (1.7-9.3); PLATELET COUNT 320 K/mm3 (130-400); REDCELL DISTRIBUTION WIDTH-CV 13.7 % (11.5-14.5)
[2020-09-02 10:36] LABS: HEMATOCRIT 31.2 % (37.0-47.0)
[2020-09-02 10:47] LABS: ALBUMIN 4.2 gm/dL (3.5-5.0); BILIRUBIN,TOTAL 0.4 mg/dL (0.0-1.0); CALCIUM 9.2 mg/dL (8.4-10.2); CREATININE, serum 0.63 (0.52-1.25); POTASSIUM 3.7 mmol/L (3.4-5.0); TOTAL PROTEIN 8.7 gm/dL (6.4-8.2)
[2020-09-02 11:38] LABS: STREP SCREEN NEGATIVE
[2020-09-02] MEDS ORDERED: NORCO 325 MG-51 TAB PO (12:25)
[2020-09-02] MEDS ORDERED: CEPHALEXIN500 M1 PO (12:25)
[2020-09-02 12:50] VITALS: PULSE 75
[2020-12-07] MEDS ORDERED: ZOFRAN ODT4 MG PO (23:57)
[2020-12-07] MEDS ORDERED: TORADOL 10MG TA10 MG PO (23:57)
[2020-12-07] MEDS ORDERED: CIPRO 500MG TA500 MG PO (23:57)
[2020-12-09] MEDS ORDERED: PERCOCET 325 MG1 TA2 PO (15:32)
== END 2020-09-02 12:50 | disposition home or self-care (01) ==
LOC: COL.ER 09:12
PROVIDERS: Personal Emergency Response Attendant
DX: L03.211 Cellulitis of face (principal); M32.9 Systemic lupus erythematosus, unspecified; I10 Essential (primary) hypertension; G51.0 Bell's palsy; Z88.6 Allergy status to analgesic agent; Z88.0 Allergy status to penicillin; Z79.899 Other long term (current) drug therapy
CPT/HCPCS: J0696; J2270; J2405; J7030; Q9967

== ENCOUNTER 2020-09-04 11:26 | Emergency (ER) | payer MEDICARE, MEDICAID ==
[~2020-09-04] VITALS: Ht 162.6 cm; Wt 100.0 kg
[2020-09-04 11:58] VITALS: BP 121/81; TEMP 99.6
[2020-09-04] MEDS ORDERED: PERCOCET 325 MG1 TA2 PO (12:55)
[2020-09-04 13:03] VITALS: PULSE 92
[2020-12-07] MEDS ORDERED: ZOFRAN ODT4 MG PO (23:57)
[2020-12-07] MEDS ORDERED: TORADOL 10MG TA10 MG PO (23:57)
[2020-12-07] MEDS ORDERED: CIPRO 500MG TA500 MG PO (23:57)
[2020-12-09] MEDS ORDERED: PERCOCET 325 MG1 TA2 PO (15:32)
== END 2020-09-04 13:03 | disposition home or self-care (01) ==
LOC: COL.ER 11:26
DX: L03.211 Cellulitis of face (principal); M32.9 Systemic lupus erythematosus, unspecified; Z88.0 Allergy status to penicillin; Z88.6 Allergy status to analgesic agent; Z79.899 Other long term (current) drug therapy

== ENCOUNTER 2020-09-09 10:43 | Emergency (ER) | payer MEDICARE, MEDICAID ==
[~2020-09-09] VITALS: Ht 162.6 cm; Wt 100.0 kg
[2020-09-09 10:55] VITALS: TEMP 98.2
[2020-09-09] MEDS ORDERED: CLEOCIN HCL300 MG PO (11:28)
[2020-09-09] MEDS ORDERED: PREDNISONE20 MG PO (11:55)
[2020-09-09 12:09] VITALS: BP 178/73; PULSE 73
[2020-12-07] MEDS ORDERED: ZOFRAN ODT4 MG PO (23:57)
[2020-12-07] MEDS ORDERED: TORADOL 10MG TA10 MG PO (23:57)
[2020-12-07] MEDS ORDERED: CIPRO 500MG TA500 MG PO (23:57)
[2020-12-09] MEDS ORDERED: PERCOCET 325 MG1 TA2 PO (15:32)
== END 2020-09-09 12:12 | disposition home or self-care (01) ==
LOC: COL.ER 10:43
DX: R22.0 Localized swelling, mass and lump, head (principal); G51.0 Bell's palsy; Z88.0 Allergy status to penicillin; Z88.6 Allergy status to analgesic agent
CPT/HCPCS: J1885

== ENCOUNTER 2020-09-15 10:04 | Emergency (ER) | payer MEDICARE, MEDICAID ==
[~2020-09-15] VITALS: Ht 162.6 cm; Wt 100.0 kg
[2020-09-15 10:14] VITALS: TEMP 98.3
[2020-09-15] MEDS ORDERED: NORCO 325 MG-51 TAB PO ×2 (12:06)
[2020-09-15 12:33] VITALS: BP 152/102; PULSE 67
[2020-12-07] MEDS ORDERED: CIPRO 500MG TA500 MG PO (23:57)
[2020-12-07] MEDS ORDERED: TORADOL 10MG TA10 MG PO (23:57)
[2020-12-07] MEDS ORDERED: ZOFRAN ODT4 MG PO (23:57)
[2020-12-09] MEDS ORDERED: PERCOCET 325 MG1 TA2 PO (15:32)
== END 2020-09-15 12:40 | disposition home or self-care (01) ==
LOC: COL.ER 10:04
DX: R22.0 Localized swelling, mass and lump, head (principal); M54.2 Cervicalgia; M54.5 Low back pain; M32.9 Systemic lupus erythematosus, unspecified; Z79.899 Other long term (current) drug therapy; W10.9XXA Fall (on) (from) unspecified stairs and steps, initial encounter
CPT/HCPCS: J1885; J2270; J2405; Q9967

== ENCOUNTER 2020-09-16 16:58 | Emergency (ER) | payer MEDICARE, MEDICAID ==
[~2020-09-16] VITALS: Ht 162.6 cm; Wt 100.0 kg
[2020-09-16 17:19] VITALS: BP 182/138; PULSE 88; TEMP 98.4
[2020-12-07] MEDS ORDERED: ZOFRAN ODT4 MG PO (23:57)
[2020-12-07] MEDS ORDERED: TORADOL 10MG TA10 MG PO (23:57)
[2020-12-07] MEDS ORDERED: CIPRO 500MG TA500 MG PO (23:57)
[2020-12-09] MEDS ORDERED: PERCOCET 325 MG1 TA2 PO (15:32)
== END 2020-09-16 18:12 | disposition home or self-care (01) ==
LOC: COL.ER 16:58
DX: S83.91XA Sprain of unspecified site of right knee, initial encounter (principal); M54.2 Cervicalgia; W10.8XXA Fall (on) (from) other stairs and steps, initial encounter

== ENCOUNTER 2020-11-07 17:37 | Emergency (ER) | payer MEDICARE, MEDICAID ==
[~2020-11-07] VITALS: Ht 162.6 cm; Wt 90.9 kg
[2020-11-07 18:03] VITALS: TEMP 97.8
[2020-11-07 18:57] VITALS: BP 136/88; PULSE 73
[2020-12-07] MEDS ORDERED: TORADOL 10MG TA10 MG PO (23:57)
[2020-12-07] MEDS ORDERED: ZOFRAN ODT4 MG PO (23:57)
[2020-12-07] MEDS ORDERED: CIPRO 500MG TA500 MG PO (23:57)
[2020-12-09] MEDS ORDERED: PERCOCET 325 MG1 TA2 PO (15:32)
== END 2020-11-07 18:55 | disposition home or self-care (01) ==
LOC: COL.ER 17:37
DX: R51.9 Headache, unspecified (principal); R03.0 Elevated blood-pressure reading, without diagnosis of hypertension; I10 Essential (primary) hypertension
CPT/HCPCS: J0780; J1885

== ENCOUNTER 2021-01-08 07:04 | Emergency (ER) | payer MEDICARE, MEDICAID ==
[~2021-01-08] VITALS: Ht 162.6 cm; Wt 90.9 kg
[~2021-01-08 07:04] MED LIST changes: +TORADOL 10MG TA10 MG PO; +ZOFRAN ODT4 MG PO
[2021-01-08 07:10] VITALS: BP 162/117; PULSE 98; TEMP 98.7
[2021-01-08] MEDS ORDERED: CLEOCIN HCL300 MG PO (07:26)
[2021-01-08] MEDS ORDERED: NORCO 325 MG-51 TAB PO (07:26)
== END 2021-01-08 07:46 | disposition home or self-care (01) ==
LOC: COL.ER 07:04
DX: K02.9 Dental caries, unspecified (principal); K04.7 Periapical abscess without sinus; I10 Essential (primary) hypertension; G51.0 Bell's palsy; M32.9 Systemic lupus erythematosus, unspecified; Z88.0 Allergy status to penicillin; Z79.899 Other long term (current) drug therapy

== ENCOUNTER 2021-02-24 08:09 | Emergency (ER) | payer MEDICARE, MEDICAID ==
[~2021-02-24] VITALS: Ht 162.6 cm; Wt 95.5 kg
[2021-02-24 08:19] VITALS: TEMP 98.5
[2021-02-24 08:53] LABS: BASO % 0.4 % (0.0-2.0); EOS % 0.4 % (0.0-4.0); GRAN # 1.3 K/mm3 (1.4-6.5); GRAN % 45.6 % (42.2-75.2); HEMOGLOBIN 10.7 g/dl (12.5-16.0); LYMPH % 33.5 % (20.0-51.0); MEAN CELL VOLUME 84 fl (80.0-100.0); MEAN CORPUSCULAR HEMOGLOBIN 29 pg (27-31); MEAN CORPUSCULAR HGB CONC 34 g/dl (33.0-37.0); MEAN PLATELET VOLUME 8.6 fl (7.4-10.4); MONO # 0.6 K/mm3 (0.1-0.6); MONO % 19.7 % (1.7-9.3); PLATELET COUNT 386 K/mm3 (130-400); RED BLOOD COUNT 3.75 M/mm3 (4.10-5.30); REDCELL DISTRIBUTION WIDTH-CV 14.1 % (11.5-14.5)
[2021-02-24 08:54] LABS: HEMATOCRIT 31.5 % (37.0-47.0)
[2021-02-24 09:00] LABS: INR 1.1 (0.8-3.0); PROTHROMBIN TIME 12.7 SECONDS (9.7-12.8)
[2021-02-24 09:15] LABS: ALBUMIN 4.1 gm/dL (3.5-5.0); BILIRUBIN,TOTAL 0.6 mg/dL (0.2-1.2); C-REACTIVE PROTEIN 0.36 mg/dL (0.00-0.50); CREATININE, serum 0.77 mg/dL (0.57-1.11); TOTAL PROTEIN 8.8 gm/dL (6.2-8.1)
[2021-02-24 09:19] LABS: POTASSIUM 2.9 mmol/L (3.5-4.5)
[2021-02-24 12:30] VITALS: BP 167/121; PULSE 77
== END 2021-02-24 12:30 | disposition home or self-care (01) ==
LOC: COL.ER 08:09
PROVIDERS: Family Medicine
DX: U07.1 COVID-19 (principal); S20.112A Abrasion of breast, left breast, initial encounter; R51.9 Headache, unspecified; M32.9 Systemic lupus erythematosus, unspecified; I10 Essential (primary) hypertension; Z79.1 Long term (current) use of non-steroidal anti-inflammatories (NSAID); X58.XXXA Exposure to other specified factors, initial encounter
CPT/HCPCS: J0780; J3010; J7120

== ENCOUNTER 2021-03-11 09:26 | Emergency (ER) | payer MEDICARE, MEDICAID ==
[~2021-03-11] VITALS: Ht 162.6 cm; Wt 95.5 kg
[2021-03-11 09:33] VITALS: BP 163/138; PULSE 94; TEMP 98.5
== END 2021-03-11 10:55 | disposition home or self-care (01) ==
LOC: COL.ER 09:26
DX: R51.9 Headache, unspecified (principal); I10 Essential (primary) hypertension; M32.9 Systemic lupus erythematosus, unspecified; G51.0 Bell's palsy; Z91.040 Latex allergy status; Z79.899 Other long term (current) drug therapy; W18.2XXA Fall in (into) shower or empty bathtub, initial encounter; Y93.E1 Activity, personal bathing and showering

== ENCOUNTER 2021-05-07 07:42 | Emergency (ER) | payer MEDICARE, MEDICAID ==
[~2021-05-07] VITALS: Ht 162.6 cm; Wt 100.0 kg
[2021-05-07 07:59] VITALS: TEMP 98.3
[2021-05-07 08:32] LABS: STREP SCREEN NEGATIVE
[2021-05-07] MEDS ORDERED: OMNICEF 300MG300 MG PO (08:48)
[2021-05-07 10:00] VITALS: BP 163/118; PULSE 82
== END 2021-05-07 10:00 | disposition home or self-care (01) ==
LOC: COL.ER 07:42
PROVIDERS: Family Medicine
DX: J02.9 Acute pharyngitis, unspecified (principal); I10 Essential (primary) hypertension; Z88.0 Allergy status to penicillin; Z91.040 Latex allergy status

== ENCOUNTER 2021-07-30 17:40 | Emergency (ER) | payer MEDICARE, MEDICAID ==
[~2021-07-30] VITALS: Ht 162.6 cm; Wt 104.5 kg
[2021-07-30 18:01] VITALS: TEMP 98.1
[2021-07-30 19:47] VITALS: BP 155/98; PULSE 68
== END 2021-07-30 20:00 | disposition home or self-care (01) ==
LOC: COL.ER 17:40
DX: S09.90XA Unspecified injury of head, initial encounter (principal); Z91.040 Latex allergy status; Z28.310 Unvaccinated for COVID-19; W16.522A Jumping or diving into swimming pool striking bottom causing other injury, initial encounter; Y93.11 Activity, swimming; Y92.34 Swimming pool (public) as the place of occurrence of the external cause

== ENCOUNTER 2021-10-12 20:12 | Emergency (ER) | payer MEDICARE, MEDICAID ==
[~2021-10-12] VITALS: Ht 162.6 cm; Wt 97.7 kg
[2021-10-12 20:21] VITALS: BP 164/97; PULSE 78; TEMP 98.3
[2021-10-12] MEDS ORDERED: FLAGYL500 MG PO (20:47)
[2021-10-12] MEDS ORDERED: CEPHALEXIN500 M1 PO (20:47)
[2021-10-12] MEDS ORDERED: NORCO 325 MG-51 TAB PO (20:47)
== END 2021-10-12 21:01 | disposition home or self-care (01) ==
LOC: COL.ER 20:12
DX: S91.332A Puncture wound without foreign body, left foot, initial encounter (principal); L03.116 Cellulitis of left lower limb; Z88.0 Allergy status to penicillin; Z91.040 Latex allergy status; W45.0XXA Nail entering through skin, initial encounter

== ENCOUNTER 2023-10-21 10:14 | Emergency (ER) | payer MEDICARE ==
[~2023-10-21] VITALS: Ht 162.6 cm; Wt 99.1 kg
[~2023-10-21 10:14] MED LIST changes: +FLAGYL500 MG PO
[2023-10-21 10:17] VITALS: TEMP 98.1
[2023-10-21] MEDS ORDERED: NS 1,000 ML IV ONE (10:30)
[2023-10-21] MEDS ORDERED: fentaNYL 50 MCG/ML 2 ML VIAL IV ONE (10:45)
[2023-10-21 11:15] LABS: BASO % 0.3 % (0.0-2.0); EOS % 0.3 % (0.0-4.0); GRAN # 2.2 K/mm3 (1.4-6.5); GRAN % 62.3 % (42.2-75.2); HEMOGLOBIN 10.4 g/dl (12.5-16.0); LYMPH # 0.9 K/mm3 (1.2-3.4); LYMPH % 26.4 % (20.0-51.0); MEAN CELL VOLUME 85 fl (80.0-100.0); MEAN CORPUSCULAR HEMOGLOBIN 28 pg (27-31); MEAN CORPUSCULAR HGB CONC 33 g/dl (33.0-37.0); MEAN PLATELET VOLUME 9.9 fl (7.4-10.4); MONO # 0.4 K/mm3 (0.1-0.6); MONO % 10.4 % (1.7-9.3); PLATELET COUNT 300 K/mm3 (130-400); RED BLOOD COUNT 3.69 M/mm3 (4.10-5.30); REDCELL DISTRIBUTION WIDTH-CV 14.7 % (11.5-14.5)
[2023-10-21 11:18] LABS: HEMATOCRIT 31.3 % (37.0-47.0)
[2023-10-21 11:25] LABS: COLLECTION METHOD CLEAN CATCH
[2023-10-21 11:33] LABS: URINE APPEARANCE CLEAR (CLEAR/HAZY); URINE BLOOD NEGATIVE (NEGATIVE); URINE COLOR YELLOW (YELLOW); URINE GLUCOSE NEGATIVE (NEGATIVE); URINE KETONE 1+ (NEGATIVE); URINE NITRATE NEGATIVE (NEGATIVE); URINE PROTEIN(semi-quant) TRACE (NEGATIVE)
[2023-10-21 11:34] LABS: ALBUMIN 3.7 g/dL (3.5-5.0); BILIRUBIN,TOTAL 0.7 mg/dL (0.2-1.2); CALCIUM 8.8 mg/dL (8.4-10.2); CREATININE, serum 0.78 mg/dL (0.57-1.11); POTASSIUM 3.7 mEq/L (3.5-4.5); TOTAL PROTEIN 9.1 g/dl (6.2-8.1)
[2023-10-21] MEDS ORDERED: Ketorolac 30 MG/ML VIAL IV ONE (11:45)
[2023-10-21] MEDS ORDERED: Iohexol 300 - 100 ML VIAL IV ONE (12:04)
[2023-10-21] MEDS ORDERED: NS 100 ML IV SCH (12:05)
[2023-10-21] MEDS ORDERED: Morphine 4 MG/ML VIAL IV ONE (13:45)
[2023-10-21] MEDS ORDERED: CEFTIN500 MG PO (13:56)
[2023-10-21] MEDS ORDERED: cefTRIAXone 1 G in Water For Injection,Sterile 10 ML IV ONE (14:00)
[2023-10-21 14:09] VITALS: BP 169/100; PULSE 69
== END 2023-10-21 14:18 | disposition home or self-care (01) ==
LOC: COL.ER 10:14
PROVIDERS: Physician Assistant
DX: N39.0 Urinary tract infection, site not specified (principal); Z88.0 Allergy status to penicillin; Z91.040 Latex allergy status
CPT/HCPCS: J0696; J1885; J2270; J3010; J7030; Q9967